=== PATIENT | male | born 1975 ===

== ENCOUNTER 2017-11-04 19:35 | Emergency (ER) | payer SELFPAY ==
[2017-11-04 19:51] VITALS: RESP 18
--- NOTE | 2017-11-04 20:23 | ED PDOC ---
Arrival/HPI - General Historian: Patient, Partner - History of Present Illness Time/Duration: Prior to Arrival Symptom Onset: Sudden Quality: Stabbing Context: Other (fell on broken bottle with outstreched arm) - General Chief Complaint: Abnormal Skin Integrity Time Seen by Provider: 11/04/17 19:36 - History of Present Illness Narrative History of Present Illness (Text): 11/04/17 20:18 This is a 41 yo M who denies any PMH but doesn't follow with doctors who presents with complaint of fall onto broken bottle resulting in glass fragment within right forearm. As per patient, attempted to restrain his dog, fell forward onto bottle, which he heard break. [place] pain immediately, saw puncture at site of pain, and noted bleeding from site. Reports can feel glass in his arm, feels like the fragment moves as he moves the forearm. Also reports feels tingling in 4th digit, but still retains full ROM of fingers. Incident occurred approximately 30 minutes prior to presentation. No shooting pains into proximal right upper extremity, full ROM of right elbow, full use of shoulder. Unsure when last tetanus shot was. Admits regular tobacco and alcohol use. Denies any recent issues, including fevers, chills, shortness of breath, nausea, emesis. PMH: denies PSH: denies Fam Hx: pt unsure Soc Hx: admits tobacco, alcohol, denies illicits PMD: None (Terrell Reza) Past Medical History - Provider Review Nursing Documentation Reviewed: Yes - Cardiac Hx Cardiac Disorders: No (denies) - Psychiatric Hx Substance Use: Yes - Surgical History Other/Comment: Patient states he had a Facial surgery, however will not provide more details. - Anesthesia Hx Anesthesia: No Family/Social History - Physician Review Nursing Documentation Reviewed: Yes Family/Social History: No Known Family HX Smoking Status: Heavy Smoker > 10 Cigarettes Daily Hx Alcohol Use: Yes Frequency of alcohol use: Few days per week Hx Substance Use: Yes Substance used: cannabis Allergies/Home Meds Allergies/Adverse Reactions: Allergies No Known Allergies Allergy (Verified 11/04/17 19:45) Review of Systems - Physician Review All systems were reviewed & negative as marked: Yes (as per HPI) - Review of Systems Constitutional: Normal. absent: Fatigue Eyes: Normal. absent: Vision Changes ENT: Normal. absent: Sore Throat, Rhinorrhea, Epistaxis Respiratory: Normal. absent: SOB, Cough Cardiovascular: Normal. absent: Chest Pain, Palpitations, ÁLVAREZ, Syncope Gastrointestinal: Normal. absent: Abdominal Pain, Nausea, Vomiting Genitourinary Male: Normal. absent: Dysuria Musculoskeletal: Other (pain in R arm at site of puncture) Skin: Laceration (at site of puncture). absent: Normal Neurological: Normal. absent: Headache, Dizziness Physical Exam Vital Signs Reviewed: Yes Temperature: Afebrile Blood Pressure: Hypertensive Pulse: Regular Respiratory Rate: Normal Appearance: Positive for: Well-Appearing, Non-Toxic, Comfortable Pain Distress: Mild (pain only at sites of puncture and at site of subdermal foreign body) Mental Status: Positive for: Alert and Oriented X 3 - Systems Exam Head: Present: Atraumatic, Normocephalic. No: Contusion, Ecchymosis, Abrasion, Laceration Pupils: No: Pinpoint Extroacular Muscles: Present: EOMI Conjunctiva: Present: Normal. No: Injected, Icteric Mouth: Present: Moist Mucous Membranes. No: Dry, Drooling Nose (External): Present: Atraumatic. No: Abrasion, Laceration Nose (Internal): Present: No Active Bleeding. No: Epistaxis Neck: Present: Normal Range of Motion. No: JVD Respiratory/Chest: Present: Clear to Auscultation, Good Air Exchange. No: Respiratory Distress, Accessory Muscle Use, Wheezes, Rales, Rhonchi Cardiovascular: Present: Regular Rate and Rhythm, Normal S1, S2, Peripheal Pulses Present (including in distal RLE, +2 radials bilaterally). No: Murmurs, Irregular Rhythm, Tachycardic, Bradycardic Abdomen: Present: Normal Bowel Sounds. No: Tenderness, Distention Upper Extremity: Present: Other (LUE exam unremarkable; RLE: puncture wound leaking dark red blood approximately 4 cm distal to elbow on medial aspect of R forearm, surrounding shallow scratches, small end of glass foriegn body visualized within puncture site not visible or extending out of wound site, normal ROM of hand and elbow but limited pronation/supination intentionally due to stabbing sensation at site and sensation of tingling when actively pronating , full ROM of all R fingers) Lower Extremity: Present: Normal Inspection. No: Deformity Neurological: Present: GCS=15, Speech Normal, Motor Func Grossly Intact (except as documented in Upper extremity exam), Normal Sensory Function, Gait Normal Skin: Present: Warm, Dry, Normal Color, Laceration (as documented in extremities exam), Abrasion (small scattered abrasions surrounding R arm puncture wound and ). No: Rashes Psychiatric: Present: Alert, Oriented x 3, Normal Insight, Normal Concentration , Normal Affect, Normal Mood. No: Anxious, Agitated Vital Signs Temp Pulse Resp BP Pulse Ox 11/04/17 22:15 88 18 142/86 100 11/04/17 20:01 98.4 F 99 H 18 163/85 H 95 11/04/17 19:50 94 H 18 142/103 H 95 11/04/17 19:39 94 H 20 143/103 H 95 Medical Decision Making Re-evaluation Time: 22:10 Reassessment Condition: Re-examined, Improved ED Course and Treatment: 11/04/17 20:23 Ddx: glass foreign body 2/2 fall on glass bottle vs other foreign body Foreign body definitely under skin, difficult to visualize end of body near puncture site, need to assess proximity to deep structures (arteries, nerves, tendons) No bright red blood currently from wound, but may simply be impinging on damaged artery Surgery consulted to assess and determine if removable, Soap Tender front desk worker notified of consult, case discussed, will be down to evaluate patient. STAT X-ray of R forearm and elbow to assess foreign body location and depth 11/04/17 20:41 X-rays obtained and reviewed, appears to be superficially located. Soap Tender at bedside, reviewed X-ray and agrees likely superficial but within region of basilic vein, to discuss with Surgical attending. 11/04/17 21:39 Glass foreign body removed, site cleaned and bandaged (please see procedure note for further details). Repeat X-ray ordered to confirm no residual foreign body. Patient given referral to Dr. Madsen to follow up in 1 week for reassessment and suture removal (pt refused to follow with Hand Surgeons referred due to distance to offices, only wants to follow up in [place]). As per Surgery's recs, patient given 3 day prescription for Keflex 500mg BID, instructed to fill prescription and take with food. Patient expressed understanding and agreement. Will be discharged to home if repeat X-ray negative. Patient seen and examined with attending, Dr. Mora. (Terrell Reza) 11/04/17 Patient Seen With Resident: 41 male presents with right arm pain s/p injury with glass as noted by resident. In agreement with resident note which contains more details about the patient. Patient was seen and evaluated with resident. Came up with plan and treatment together. Discussed case with Dr. Madsen, Surgical attending, who will have resident evaluate patient. Soap Tender Moises came to evaluate laceration, removed glass and repaired wound. Repeat Xray shows no foreign body. After removal of glass patient no longer felt any sharp pain or tingling or numbness. Denies any weakness. Will discharge pt with antibiotics. Stressed to the patient the importance of follow up with hand surgery and Dr. Madsen. Keflex Rx. (Westley Mora) - RAD Interpretation Radiology Orders: 11/04/17 20:00 ELBOW RIGHT 3 VIEWS ROUTINE [RAD] Stat 11/04/17 20:03 FOREARM RIGHT [RAD] Stat 11/04/17 21:29 FOREARM RIGHT [RAD] Stat - Medication Orders Current Medication Orders: Discontinued Medications Lidocaine HCl (Lidocaine 1% (20ml)) 1 ml IJ STAT STA Stop: 11/04/17 20:58 Last Admin: 11/04/17 21:33 Dose: 1 ml Comments: by Tetanus/Reduced Diphtheria/Acell Pertussis (Boostrix Vaccine Inj) 0.5 ml IM .ONCE ONE Stop: 11/04/17 20:58 Last Admin: 11/04/17 21:32 Dose: 0.5 ml Immunization Registry Document 11/04/17 21:32 CNR (Rec: 11/04/17 21:32 CNR [id number]) Immunization Registry Consent Date 11/04/17 Disposition/Present on Arrival - Present on Arrival Any Indicators Present on Arrival: No History of DVT/PE: No History of Uncontrolled Diabetes: No Urinary Catheter: No History of Decub. Ulcer: No History Surgical Site Infection Following: None - Disposition Have Diagnosis and Disposition been Completed?: Yes Disposition Time: 22:10 Patient Plan: Discharge - Disposition Diagnosis: Arm laceration Disposition: HOME/ ROUTINE Condition: GOOD Discharge Instructions (ExitCare): Laceration Repair With Stitches (DC) Additional Instructions: MAZIN HUGGINS, thank you for letting us take care of you today. Your providers were Westley Mora DO and Terrell Reza DO, and you were treated for ARM LACERATION WITH FOREIGN BODY. The emergency medical care you received today was directed at your acute symptoms. Please fill your prescription for Keflex ( 500mg by mouth twice per day for 3 days) and take as prescribed. It may take several days for your symptoms to resolve. Return to the Emergency Department if your symptoms worsen, do not improve, or if you have any other problems. Please follow up with either of the Hand Surgeons (Dr. Sarah Hope and Dr. Zoltan Cueto) or with the General Surgeon (Dr Cale Munoz) within 1 week. Please also establish yourself with a primary care doctor or come to the [facility] clinic within 1 week of discharge (referral provided). Bring any paperwork you were given at discharge with you along with any medications you are taking to your follow up visit. Our treatment cannot replace ongoing medical care by a primary care provider outside of the emergency department. Thank you for allowing the [facility] team to be part of your care today. If you had an X-Ray or CT scan: A Radiologist will review the ED reading if any change in treatment is needed we will contact you. If you had a blood, urine, or wound culture: It will take several days for the results, if any change in treatment is needed we will contact you. If you had an STI test: It will take 48 hours for the results. Please call after 1 week if you have not heard back. Prescriptions: Cephalexin [Keflex] 500 mg PO BID #6 capsule Referrals: Kaylee Smith MD [Non-Staff] - Follow up with primary Thomas Dixon MD [Staff Provider] - Follow up with primary Omer Madsen MD [Staff Provider] - Follow up with primary [facility] at [facility] [Outside] - Follow up with primary Forms: [employer] (Maltese)
[2017-11-04 20:33] VITALS: TEMP 98.4
[2017-11-04] MEDS ORDERED: TDAP Vaccine 0.5 mL Syr IM ONE (20:57)
[2017-11-04] MEDS ORDERED: Lidocaine 1% Inj (20ml) IJ STA (20:57)
[2017-11-04] MEDS ORDERED: Lidocaine 1% Inj (20ml) ONE (21:00)
--- NOTE | 2017-11-04 21:50 | CP.PCM.CON ---
History of Present Illness - History of Present Illness History of Present Illness: General Surgery Consult note for Dr. Madsen Consulted for: forearm laceration with foreign body Patient is a 41M who denies significant past medical history who lacerated his right forearm landing on a glass bottle while trying to restrain a dog. Patient states that it bleed significantly at the time but slowed down with pressure. He felt a foreign body underneath the skin but did not remove it. He states that he has some tingling sensation in the right 4th digit when he flexes his wrist but has full sensation to touch and no neuromuscular deficits. Doesn't know when his last tetanus shot was. Patient also sustained minor lacerations to the 5th finger of the right hand that was repaired by ER, and minor abrasions to the right elbow. Denies any other injuries, did not lose consciousness. PMH: denies PSH: denies ALL: NKDA Social: Cigarettes, Daily ETOH, Marijuana Review of Systems - Review of Systems All systems: reviewed and no additional remarkable complaints except (as per HPI ) Past Patient History - Past Medical History & Family History Past Medical History?: No Past Family History: Reviewed and not pertinent - Past Social History Smoking Status: Heavy Smoker > 10 Cigarettes Daily Alcohol: > 2 Drinks/Day Drugs: Cannabis - CARDIAC Hx Cardiac Disorders: No (denies) - PSYCHIATRIC Hx Substance Use: Yes - SURGICAL HISTORY Other/Comment: Patient states he had a Facial surgery, however will not provide more details. - ANESTHESIA Hx Anesthesia: No Meds Home Medications: Home Medication List Medication Instructions Recorded Confirmed Type Cephalexin [Keflex] 500 mg PO BID #6 capsule 11/04/17 Rx Allergies/Adverse Reactions: Allergies Allergy/AdvReac Type Severity Reaction Status Date / Time No Known Allergies Allergy Verified 11/04/17 19:45 Physical Exam - Constitutional Appears: Well, Non-toxic, No Acute Distress - Head Exam Head Exam: ATRAUMATIC, NORMAL INSPECTION, NORMOCEPHALIC - Eye Exam Eye Exam: EOMI, Normal appearance. absent: Conjunctival injection, Scleral icterus - ENT Exam ENT Exam: Mucous Membranes Moist, Normal Oropharynx - Respiratory Exam Respiratory Exam: NORMAL BREATHING PATTERN. absent: Accessory Muscle Use, Respiratory Distress - Cardiovascular Exam Cardiovascular Exam: RRR - GI/Abdominal Exam GI & Abdominal Exam: Soft. absent: Distended, Tenderness - Extremities Exam Extremities exam: Positive for: pedal pulses present. Negative for: calf tenderness, pedal edema Additional comments: right ulnar forearm with 1cm laceration approximately 6cm distal to the elbow. Palpable foreign body extending medial under the cutaneous tissue. Minimal sanguinous oozing appreciated. Multiple linear abrasions limited ot the epidermis just proximal to the laceration. 5/5 muscle strength in the right arm , wrist, and fingers with full range of motion. Radial and ulnar Pulses intact in the wrist, normal capillary refill, gross sensation intact - Neurological Exam Neurological exam: Alert, Oriented x3 - Psychiatric Exam Psychiatric exam: Normal Affect, Normal Mood Results - Vital Signs Recent Vital Signs: Last Vital Signs Temp 98.4 F 11/04/17 20:01 Pulse 99 H 11/04/17 20:01 Resp 18 11/04/17 20:01 BP 163/85 H 11/04/17 20:01 Pulse Ox 95 11/04/17 20:01 - Imaging and Cardiology right forearm xray Status: Image reviewed by me Assessment & Plan - Assessment and Plan (Free Text) Assessment: 41M with laceration of the right forearm with piece of glass subcutaneous Plan: Removed glass at bedside, washed wound, and sutured closed--see procedure note. Patient, laterality, and planned procedure were identified and confirmed at bedside. Dr. Terrell Reza, PGY2 was assisting at bedside. Patient tolerated the procedure well with improvement in his tingling of the right 4th finger, had full hemostasis, and no neuromuscular deficits Follow up with Dr. Madsen in his office in 1 week with PO antbiotics for follow up and suture removal. Patient should also follow up tomorrow to a hand surgeon to evaluate the wound and re-assess for any deficits. Patient should return to the ER for any bleeding, fever, erythema, swelling, numbness or tingling of the fingers, neuromuscular deficits, or any other concerning symptoms. Discussed with Dr. Madsen, who agrees with above Whit De Leon PGY2 Laceration - Laceration Repair No standard instances Wound Length (In cm): 0.39 in Description Of Wound: Linear Wound Cleansed With: Betadine, Sterile Saline Anesthesia: Lidocaine 1% Wound Examination: Irrigated With Saline, No Tendon Injury With Wound Exploration, Foreign Material Removed Manually (removed a piece of glass approximately 2cm long and 1cm wide similar to the object identified on the xray --removed as one piece. Wound was then re-explored with a clamp and no further foreign bodies were discovered) Wound Closure: Suture Suture Technique And Material Used: Interrupted, Nylon (2-0) Wound Complexity: Complex
[2017-11-04 22:21] VITALS: BP 142/86; PULSE 88; O2SAT 100
--- NOTE | 2017-11-05 08:55 | RAD ---
PROCEDURE: Radiographs of the Right Forearm HISTORY: reassess, check for retained foreign body COMPARISON: None available. TECHNIQUE: Frontal and lateral views obtained. FINDINGS: BONES: No fracture or destructive lesion. JOINT SPACES: Unremarkable. OTHER FINDINGS: None. IMPRESSION: Unremarkable radiographs of the right forearm.
--- NOTE | 2017-11-05 23:02 | RAD ---
PROCEDURE: Radiographs of the Right Forearm HISTORY: Laceration with glass fragment COMPARISON: None available. TECHNIQUE: Frontal and lateral views obtained. FINDINGS: BONES: No fracture or destructive lesion. JOINT SPACES: Unremarkable. OTHER FINDINGS: None. IMPRESSION: There is a glass fragment adjacent to the proximal ulna measuring 7 x 23 mm
--- NOTE | 2017-11-05 23:04 | RAD ---
PROCEDURE: Radiographs of the right elbow. HISTORY: Fall with laceration COMPARISON: No prior. FINDINGS: BONES: Normal. No fracture. JOINTS: Normal. No osteoarthritis. SOFT TISSUES: There is a 7 x 23 mm glass fragment just beneath the skin surface adjacent to the proximal ulna JOINT EFFUSION: None. OTHER FINDINGS: None. IMPRESSION: No evidence of fracture There is a 7 x 23 mm glass fragment just beneath the skin surface adjacent to the proximal ulna
== END 2017-11-04 22:15 | disposition home or self-care (01) ==
LOC: MERGE 19:35 → ED 19:35
DX: S41.121A Laceration with foreign body of right upper arm, initial encounter (principal); W01.110A Fall on same level from slipping, tripping and stumbling with subsequent striking against sharp glass, initial encounter; Y92.89 Other specified places as the place of occurrence of the external cause; Z23 Encounter for immunization